=== PATIENT | male | born 1985 | race Caucasian/White ===

== ENCOUNTER 2018-03-16 00:58 | Observation (INO) | payer BC, OTHER ==
[~2018-03-16] VITALS: Ht 185.4 cm; Wt 112.0 kg
[~2018-03-16 00:58] MED LIST: ADDERALL 20 MG20 MG PO
[2018-03-16] MEDS ORDERED: ASPIRIN 81 MG CHEW TAB PO ONE (02:30)
[2018-03-16] MEDS ORDERED: CLONIDINE HCL 0.1 MG TAB PO ONE (02:30)
[2018-03-16 02:47] LABS: BASOPHILS # (AUTO) 0.1 (0.0-0.1); BASOPHILS % 0.7 % (0.0-1.0); EOSINOPHILS # (AUTO) 0.5 (0.0-0.4); EOSINOPHILS % 5.1 % (0.0-6.0); HEMATOCRIT 46.6 % (38.2-49.6); HEMOGLOBIN 16.4 g/dL (14.0-18.0); LYMPHOCYTES # (AUTO) 2.6 (1.0-3.2); LYMPHOCYTES % 26.4 % (18.0-39.1); MEAN CORPUSCULAR HEMOGLOBIN 32.2 pg (28-32); MEAN CORPUSCULAR HGB CONC 35.2 g/dL (31-35); MEAN CORPUSCULAR VOLUME 91.4 fL (81-99); MONOCYTES # (AUTO) 0.8 (0.2-0.8); MONOCYTES % 8.5 % (4.4-11.3); NEUTROPHILS # (AUTO) 5.7 (2.1-6.9); PLATELET COUNT 346 x10e3/uL (140-360); RED CELL DISTRIBUTION WIDTH 12.4 % (11.7-14.4)
[2018-03-16 02:59] LABS: CLARITY,URINE HAZY (CLEAR); COLOR,URINE YELLOW (YELLOW); LEUKOCYTE ESTERASE ,URINE 1+ (NEGATIVE); NITRITE,URINE NEGATIVE (NEGATIVE); PROTEIN,URINE DIPSTICK NEGATIVE (NEGATIVE)
[2018-03-16 03:00] LABS: BILIRUBIN,URINE NEGATIVE (NEGATIVE); INR 1.04; KETONES,URINE NEGATIVE (NEGATIVE); PROTHROMBIN TIME 12.8 seconds (11.9-14.5); URINE UROBILINOGEN 0.2 mg/dL (0.2 - 1)
[2018-03-16 03:01] LABS: AMPHETAMINES SCREEN,URINE POSITIVE (NEGATIVE); PARTIAL THROMBOPLASTIN TIME 33.4 seconds (23.8-35.5); PHENCYCLIDINE SCREEN,URINE NEGATIVE (NEGATIVE)
[2018-03-16 03:02] LABS: BENZODIAZEPINES SCREEN,URINE NEGATIVE (NEGATIVE)
[2018-03-16 03:10] LABS: ALANINE AMINOTRANSFERASE 41 IU/L (0-55); ALBUMIN 4.1 g/dL (3.5-5.0); ALBUMIN/GLOBULIN RATIO 1.2 (0.8-2.0); ALKALINE PHOSPHATASE 72 IU/L (40-150); ANION GAP 14.6 mmol/L (8-16); BLOOD UREA NITROGEN 10 mg/dL (7-26); BUN/CREATININE RATIO 10 (6-25); CALCIUM 9.9 mg/dL (8.4-10.2); CARBON DIOXIDE 26 mmol/L (22-29); CHLORIDE 101 mmol/L (98-107); CREATINE KINASE 326 IU/L (30-200); CREATININE, SERUM 0.99 mg/dL (0.72-1.25); EST GLOMERULAR FILTRATION RATE > 60 ML/MIN (60-); GLUCOSE 103 mg/dL (74-118); MAGNESIUM 1.8 MG/DL (1.3-2.1); POTASSIUM 3.6 mmol/L (3.5-5.1); SODIUM 138 mmol/L (136-145)
[2018-03-16 03:13] LABS: BACTERIA,URINE FEW /HPF; EPITHELIAL CELLS,URINE FEW /LPF; WBC,URINE (MAN) >50 /HPF (0-5)
--- NOTE | 2018-03-16 03:33 | Diagnostic Imaging Report ---
CHEST 2 VIEWS, Technique: CHEST 2 VIEWS Comparison: 04/06/2015 Clinical history: Chest pain DISCUSSION: Normal appearance of the heart, mediastinum, lungs and pleural spaces. IMPRESSION: No acute abnormality Signed by: Dr Suzie Dumont MD on 03/16/2018 3:30 AM
[2018-03-16] MEDS ORDERED: CEFTRIAXONE SOD 1 GM VIAL IV SCH (04:15)
[2018-03-16] MEDS ORDERED: AZITHROMYCIN 250 MG TAB PO ONE (04:15)
[2018-03-16] MEDS ORDERED: FAMOTIDINE 20 MG/2 ML VIAL IV SCH (04:30)
[2018-03-16] MEDS ORDERED: ONDANSETRON HCL INJ 2 MG/ML VIAL IV PRN (04:30)
[2018-03-16 05:45] VITALS: BP 139/81
[2018-03-16 06:26] VITALS: BP 139/81
[2018-03-16 07:32] VITALS: BP 124/68
[2018-03-16] MEDS ORDERED: KETOROLAC TROMETHAMINE 30 MG/ML VIAL IV PRN (08:45)
[2018-03-16] MEDS ORDERED: ASPIRIN 81 MG ENTERIC COATED PO SCH (09:00)
[2018-03-16] MEDS ORDERED: NICOTINE 14 MG/EA PATCH TOP SCH (09:30)
[2018-03-16 10:29] LABS: CREATINE KINASE 258 IU/L (30-200)
--- NOTE | 2018-03-16 10:34 | History and Physical ---
PCP: Mario Rabago MD GLASS TECHNICIAN: Edi Leon MD CHIEF COMPLAINT: Epigastric pain and chest pain associated with radiation of pain to the left upper extremity and to the jaw area. HISTORY OF PRESENT ILLNESS: The patient is a pleasant, 32-year-old male with ADD. The patient is on Adderall. Basically he was doing fine, but approximately 2 months ago he had the same similar episode where he had some upper abdominal pain and subsequent left-sided chest pain, like squeezing pain radiating to his left jaw and to the left upper extremity. While he was trying to sleep, he developed a jerking movement. The pain is intensified. Blood pressure went up. The patient in the emergency room, his blood pressure went up to the 163 to 111. Previously, when he has taken blood pressure medication, he felt better. Patient's blood pressure now is 124/68. His pulse rate is 101. Otherwise, the patient is stable. He is asymptomatic now. He did have one episode earlier where he had severe chest pain where he received ketorolac, and it improved his symptoms. PAST MEDICAL HISTORY: ADD and elevation of blood pressure at times. HOME MEDICATIONS: Adderall 20 mg t.i.d. ALLERGIES: NO KNOWN ALLERGIES. PAST SURGICAL HISTORY: Noncontributory. 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 He has protective gear and no recent chemical exposure. He does smoke. He is a social drinker. PHYSICAL EXAMINATION VITAL SIGNS: Temperature is 98. Blood pressure 124/68. Pulse rate 86. Respirations 20. GENERAL EXAM: The patient is not in acute distress. He is awake. HEENT: Normocephalic. Sclerae are anicteric. NECK: Supple grossly. PULMONARY: Clear. CARDIOVASCULAR: Regular rate and rhythm. ABDOMEN: Soft. Generalized discomfort, but no guarding or rebound tenderness. EXTREMITIES: No gross cyanosis or edema. NEUROLOGIC: There is no gross focal deficit. LABORATORY: Sodium is 138, potassium 3.6, chloride 101, bicarb 26, BUN 10, creatinine 0.9. Glucose is 103. Creatinine kinase is 326. AST is 35. ALT is 41. Cardiac enzymes are negative. Toxicology positive for amphetamine for which the patient has prescribed medication. Positive for opiate. Urine has 1+ leukocyte esterase, greater than 50 WBCs. WBC is 9.6, hemoglobin 16.4, hematocrit 46.6 and platelets is 346. Chest x-ray is unremarkable. IMPRESSION 1. Abdominal and chest pain, etiology unclear, recurrent. This is the 2nd time. 2. Urinary tract infection. 3. Pressure chest pain. 4. Episodic increase in blood pressure. PLAN 1. CT of the chest, abdomen and pelvis with contrast. 2. Echocardiogram. 3. Consultation with Dr. Edi Leon. 4. Continue with supportive medication. 5. Pain control. 6. Will monitor the patient closely. 7. The patient will resume his home medications. EVAN ALLEN MD Job#: [id number]
[2018-03-16 11:39] LABS: CHOL/HDL RATIO 4.1 (3.9-4.7)
[2018-03-16 11:46] VITALS: BP 130/76
[2018-03-16 12:00] LABS: THYROID STIMULATING HORMONE 0.964 uIU/mL (0.350-4.940)
--- NOTE | 2018-03-16 13:16 | Consultation ---
DATE OF CONSULTATION: March 16, 2018 CARDIOLOGY CONSULTATION REASON FOR CONSULTATION: Chest pain. HPI: This is a 32-year-old male with history of ADHD on Adderall therapy and history of "occasional hypertension." The patient presented to [facility] ER with complaints of initial abdominal pain and some left-sided chest tightness. Therefore, cardiology was consulted. The patient was seen in the room in no acute distress. He reports he has had several episodes of left-sided chest pain and tightness going down to his left shoulder and arm. However, last night, while he was lying in bed, he had symptoms again. Therefore, he came to the ER for evaluation. He reports during these chest pain episodes some shortness of breath, palpitations and some slight nausea. He states the discomforts lasted for hours, and they relieved on their own. Labs drawn are showing negative troponin times 2 and negative BNP. EKG showing no ST changes suggestive of acute event. Of note, he had a UA which was suggestive of urinary tract infection, and he has been given antibiotic therapy. PAST MEDICAL HISTORY: ADHD, also "occasional hypertension." HOME MEDICATIONS: Adderall 20 mg t.i.d. SURGICAL HISTORY: Left meniscus repair. 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 He is a smoker for greater than 10 years of 1/2 pack per day. He reports alcohol use on occasion. FAMILY HISTORY: Mother is alive, age 50, with a history of hypertension. Father at age 60 apparently has a history of alcoholism. Maternal grandmother has history of bypass. Paternal grandfather has a history of CAD and CABG. ALLERGIES: NO KNOWN ALLERGIES. REVIEW OF SYSTEMS GENERAL: Denies any fever, chills, weight gain, night sweats. SKIN: No rashes or sores. HEENT: Some nausea and vomiting times 1. Denies any visual changes. No blurred vision or double vision, any earaches or discharge, any epistaxis, rhinorrhea, stuffiness, any sore throat or hoarseness. CARDIAC: Positive chest pain as above. Occasional palpitations. Positive dyspnea on exertion. Denies any orthopnea, PND, or lower extremity edema. RESPIRATORY: Positive for shortness of breath on exertion. Denies any wheezing or hemoptysis. GI: Good appetite. Occasional nausea and vomiting. Denies any hematemesis. URINARY: Denies any polyuria, dysuria, hematuria. VASCULAR: Denies any lower extremity edema or claudication. MUSCULOSKELETAL: Generalized joint pains and bilateral knee pains. NEURO: Right toe numbness. No blackouts, fainting, seizures. HEMATOLOGY: No anemia. No easy bruising. ENDOCRINE: No heat or cold intolerance. No polyuria, polydipsia, or polyphagia. PHYSICAL EXAMINATION VITAL SIGNS: Current temperature 97, pulse 81, respiratory rate 17, blood pressure 130/76, pulse ox 98%. GENERAL: In no acute distress, reliable informant. Well developed. SKIN: No rashes or bruises. Positive tattoos through left shoulder and left arm. HEENT: Normocephalic. Pupils are equal and reactive. Extraocular motor intact. Trachea is midline. No thyromegaly. No JVD. No carotid bruits noted. HEART: Regular rate and rhythm. No murmurs. No clicks. LUNGS: Bilateral breath sounds are clear to auscultation. ABDOMEN: Soft, nontender and nondistended. No organomegaly noted. MUSCULOSKELETAL: Good muscle strength throughout. No lower extremity swelling. VASCULAR: There are +2 bilateral radial pulses and +2 DP and PT pulses bilaterally. NEUROLOGIC: Cranial nerves II through XII seem intact. LABS: Sodium 138, potassium 3.6, BUN 10, creatinine 0.9. Troponin less than 0.001 times 2. BNP less than 10. HDL 47, LDL 111. Hemoglobin 16, hematocrit 46, platelets 346. D-dimer less than 100. UA is showing leukocyte esterase +1 and urine WBCs greater than 50. Chest x-ray: No acute abnormalities. EKG: Sinus tachycardia at 100. No ST changes suggestive of an acute event. ASSESSMENT 1. Urinary tract infection. 2. Chest pain. 3. Hypertension. 4. Palpitations. 5. Anxiety. PLAN 1. The patient presents with mixed features. Thus far, negative enzymes times 2. EKG without any acute changes suggestive of an acute event. The patient is very concerned with these symptoms. He reports this is the 3rd time he has had these chest pain symptoms and wants further evaluation. Echocardiogram has been ordered and is currently being done. Will be reviewed by cardiology attending. 2. Will go ahead and do a stress test as per the patient's request to evaluate the symptoms. 3. Will continue tele monitoring. The patient is reporting palpitations intermittently. However, tele was reviewed, and no arrhythmia was noted. 4. Antibiotic therapy as per primary service for his UTI. 5. The blood pressure is reasonable right now. We will just continue to monitor for now. 6. We will go ahead and check a TSH level. Thank you very much for this consult. We will adjust cardiac therapy as course dictates. Dictated by: Elvis Harley NP Job#: [id number]
--- NOTE | 2018-03-16 13:26 | Cardiology Report ---
DATE OF STUDY: March 16, 2018 CARDIAC STRESS TEST TECHNICAL DETAILS: The protocol is Dc with target heart rate at 161 per minute (85%). RESULTS 1. Patient exercised for a total of 9 minutes 1 second. 2. Heart rate increased from 70 per minute to 165 per minute. 3. Blood pressure increased from 110/70 to 160/80. 4. No chest pain. 5. No EKG changes. IMPRESSION: Negative cardiac stress test. Limitations of a negative cardiac stress test are explained and discussed. Job#: [id number]
--- NOTE | 2018-03-16 13:39 | Diagnostic Imaging Report ---
PROCEDURE: CT scan of the chest WITH intravenous contrast, using standard protocol. TECHNIQUE: The chest was scanned utilizing a multidetector helical scanner from the lung apex through the level of the adrenal glands after the IV administration of 100 cc of Isovue 370. Coronal and sagittal multiplanar reformations were obtained. DLP: 1078.55 mGy-cm COMPARISON: Same day chest radiograph. INDICATIONS: CHEST, ABDOMEN PAIN FINDINGS: Lines/tubes: None. Lungs and Airways: The lungs and airways are normal. There is mild dependent atelectasis. No consolidations are demonstrated. Pleura: The pleural spaces are clear. Heart and mediastinum: The thyroid gland is normal. No significant mediastinal, hilar or axillary lymphadenopathy is seen. The heart and pericardium are within normal limits. Main pulmonary artery measures 2.5 cm in diameter, within normal limits. Ascending aorta measures 2.5 cm in diameter, within normal limits. Soft tissues: Normal. Abdomen: Please see same day CT abdomen and pelvis for abdominal findings. Bones: The visualized bony thorax is within normal limits. IMPRESSION: Normal chest CT. Dictated by: Supa Rodriguez M.D. on 03/16/2018 at 13:41 Electronically approved by: Supa Rodriguez M.D. on 03/16/2018 at 13:41
--- NOTE | 2018-03-16 13:45 | Diagnostic Imaging Report ---
PROCEDURE: CT ABDOMEN AND PELVIS WITH CONTRAST TECHNIQUE: The abdomen and pelvis were scanned utilizing a multidetector helical scanner from the diaphragm to the lesser trochanter after the IV administration of 100 cc of Isovue 370 and the oral administration of 900 cc of water. Coronal and sagittal multiplanar reformations were obtained. DLP: 1078.55 mGy-cm COMPARISON: None. INDICATIONS: CHEST, ABDOMEN PAIN FINDINGS: THORAX: Please see same day chest CT for chest findings. HEPATOBILIARY: No focal hepatic lesions. No biliary ductal dilatation. SPLEEN: No splenomegaly. PANCREAS: No focal masses or ductal dilatation. ADRENALS: No adrenal nodules. KIDNEYS/URETERS: No hydronephrosis, stones, or solid mass lesions. PELVIC ORGANS/BLADDER: Unremarkable. PERITONEUM / RETROPERITONEUM: No free air or fluid. LYMPH NODES: No lymphadenopathy. VESSELS: Unremarkable. GI TRACT: No distention or wall thickening. BONES AND SOFT TISSUES: Unremarkable. IMPRESSION: No acute abnormalities in the abdomen and pelvis. Dictated by: Supa Rodriguez M.D. on 03/16/2018 at 13:48 Electronically approved by: Supa Rodriguez M.D. on 03/16/2018 at 13:48
[2018-03-16] MEDS ORDERED: SODIUM CHLORIDE 0.9% 50ML 50 ML ONE (14:45)
[2018-03-16] MEDS ORDERED: IOPAMIDOL 370 MG/ML 200 ML INFUS..BTL INJ ONE (14:46)
[2018-03-16] MEDS ORDERED: CEFTRIAXONE SOD 1 GM VIAL IM ONE (15:00)
[2018-03-16] MEDS ORDERED: LIDOCAINE HCL 1% 2 ML AMP INJ ONE (15:00)
[2018-03-16] MEDS ORDERED: NON-FORMULARY MEDICATION (Amphet Asp/Amphet/D-Amphet (Adderall 20 Mg Tablet) 20 MG) PO SCH (15:00)
[2018-03-16 15:25] VITALS: BP 156/90
[2018-03-16 15:44] VITALS: BP 162/82
== END 2018-03-16 16:03 | disposition home or self-care (01) ==
LOC: ER 00:58 → ERHOLD 04:26 → IMCU 05:30
PROVIDERS: ADMIT Internal Medicine; ATTEND Internal Medicine
DX: R07.9 Chest pain, unspecified (principal); N30.00 Acute cystitis without hematuria; I10 Essential (primary) hypertension; F90.9 Attention-deficit hyperactivity disorder, unspecified type; R10.13 Epigastric pain; R68.84 Jaw pain; R00.2 Palpitations; F41.9 Anxiety disorder, unspecified; F17.210 Nicotine dependence, cigarettes, uncomplicated
CPT/HCPCS: 36415; 71046; 71260; 74177; 80053; 80061; 80307; 81001; 82550; 82553; 83735; 83880; 84443; 84484; 85025; 85379; 85610; 85730; 93005; 93017; 93306; 99284; G0378; J0696; J1885; J2001; Q9967

== ENCOUNTER 2019-05-23 05:09 | Inpatient (IN) | payer SELFPAY ==
[2019-05-23] VITALS (18 sets, daily range): BP systolic 85–198; BP diastolic 59–108
[~2019-05-23] VITALS: Ht 185.4 cm; Wt 95.3 kg
--- OUTSIDE RECORDS SUMMARY | 2019-05-23 05:11 | XMS REPORT | Clinical Summary ---
Author Author [facility] Organization [facility] Address Unknown Phone Unavailable Care Team Providers Care Hand Rounder Name Role Phone Ania Sahu MD PCP Allergies No Known Allergies Medications End Date Status Medication Sig Dispensed Refills Start Date Active AMPHETAMINE-DEXTROAMPHETA 20 mg 3 0 MINE 20 MG tablet (three) times 6 a day. Rarely takes TID Active dexlansoprazole Take 60 mg by 0 (DEXILANT) 60 mg capsule mouth daily. Active ondansetron (ZOFRAN) 4 MG Take 1 tablet 20 tablet 0 tablet (4 mg total) 6 by mouth every 8 (eight) hours as needed for nausea or vomiting. Active Problems No known active problems Family History Medical History Relation Name Comments Alcohol abuse Father Drug abuse Father Other Father No Known Problems Mother Relation Name Status Comments Father Alive Mother Alive Social History Date Tobacco Use Types Packs/Day Years Used Current Every Day Smoker Cigarettes 0.5 10 Drinks/Week oz/Week Comments Alcohol Use 3 Cans of beer currently 3 drinks a month - but 6 months prior heavier etoh use Yes Sex Assigned at Date Recorded Not on file Industry Job Start Date Occupation Not on file Not on file Not on file Travel End Travel History Travel Start No recent travel history available. Last Filed Vital Signs Not on file Plan of Treatment Health Maintenance Due Date Last Done Comments INFLUENZA VACCINE 04/27/2019 Results Not on fileafter 05/22/2018 Insurance Type Payer Benefit Subscriber ID Effective Phone Address Plan / Dates Group HMO/PPO [facility] xxxxxxxxx 2016-P THCARE resent CHOICE/CHO ICE + y (Home) [place] [id number]
[2019-05-23] MEDS ORDERED: ONDANSETRON HCL INJ 2MG/ML 2ML 2 MG/ML VIAL IV STA (05:35)
--- NOTE | 2019-05-23 05:40 | NUR ---
PT AGITATED - UNABLE TO GET EKG D/T PT AGITATION; ER MD NOTIFIED - ATIVAN 1MG IVP ORDERED
[2019-05-23] MEDS ORDERED: SODIUM CHLORIDE 0.9% 1000ML 1,000 ML IV ONE ×2 (05:45→07:51)
[2019-05-23] MEDS ORDERED: LORAZEPAM INJ 2 MG/ML VIAL IV ONE ×3 (05:45→07:15)
[2019-05-23 05:57] LABS: BASOPHILS # (AUTO) 0.1 (0.0-0.1); BASOPHILS % 0.7 % (0.0-1.0); EOSINOPHILS # (AUTO) 0.3 (0.0-0.4); EOSINOPHILS % 2.4 % (0.0-6.0); HEMATOCRIT 46.6 % (38.2-49.6); HEMOGLOBIN 16.1 g/dL (14.0-18.0); LYMPHOCYTES # (AUTO) 1.6 (1.0-3.2); MEAN CORPUSCULAR HEMOGLOBIN 31.5 pg (28-32); MEAN CORPUSCULAR HGB CONC 34.5 g/dL (31-35); MEAN CORPUSCULAR VOLUME 91.2 fL (81-99); MONOCYTES # (AUTO) 0.8 (0.2-0.8); NEUTROPHILS % 74.4 % (38.7-80.0); PLATELET COUNT 374 x10e3/uL (140-360); RED BLOOD COUNT 5.11 x10e6/uL (4.3-5.7); RED CELL DISTRIBUTION WIDTH 12.5 % (11.7-14.4)
--- NOTE | 2019-05-23 06:00 | NUR ---
PT CONTINUOUSLY PULLING MONITOR CORDS OFF AND IV TUBING; PT STATES IT IS "BOTHERING ME"
[2019-05-23 06:15] LABS: ALANINE AMINOTRANSFERASE 36 IU/L (0-55); ALBUMIN 4.2 g/dL (3.5-5.0); ALBUMIN/GLOBULIN RATIO 1.3 (0.8-2.0); ALKALINE PHOSPHATASE 76 IU/L (40-150); ANION GAP 13.9 mmol/L (8-16); BLOOD UREA NITROGEN 10 mg/dL (7-26); BUN/CREATININE RATIO 10 (6-25); CALCIUM 10.2 mg/dL (8.4-10.2); CARBON DIOXIDE 25 mmol/L (22-29); CHLORIDE 103 mmol/L (98-107); CREATINE KINASE 512 IU/L (30-200); CREATININE, SERUM 0.97 mg/dL (0.72-1.25); EST GLOMERULAR FILTRATION RATE > 60 ML/MIN (60-); GLUCOSE 111 mg/dL (74-118); POTASSIUM 3.9 mmol/L (3.5-5.1); SODIUM 138 mmol/L (136-145)
--- NOTE | 2019-05-23 06:23 | Diagnostic Imaging Report ---
Examination: Single AP view of the chest. COMPARISON: 03/16/2018 INDICATION: Cough DISCUSSION: Lungs are well-inflated and without focal consolidation, pleural effusion, or pneumothorax. Cardiomediastinal contour and pulmonary vasculature are within normal limits. No acute osseous abnormality. IMPRESSION: 1. No acute cardiopulmonary abnormalities. Signed by: Dr. Elvis Ruggiero M.D. on 05/23/2019 6:20 AM
[2019-05-23] MEDS ORDERED: CLONIDINE HCL 0.1 MG TAB PO ONE (06:30)
[2019-05-23 06:42] LABS: BILIRUBIN,URINE NEGATIVE (NEGATIVE); CLARITY,URINE CLEAR (CLEAR); COLOR,URINE YELLOW (YELLOW); KETONES,URINE NEGATIVE (NEGATIVE); LEUKOCYTE ESTERASE ,URINE TRACE (NEGATIVE); NITRITE,URINE NEGATIVE (NEGATIVE); PROTEIN,URINE DIPSTICK NEGATIVE (NEGATIVE); URINE UROBILINOGEN 0.2 mg/dL (0.2 - 1)
[2019-05-23] MEDS ORDERED: ZIPRASIDONE 20 MG VIAL IM STA (06:43)
--- NOTE | 2019-05-23 06:45 | NUR ---
PT REPORT TAKEN FROM SOL RN; PER SOL PT AGITATED AND UNCOOPERATIVE; PT WOULD NOT SIT STILL FOR EKG OR BP; UPON INTRODUCTION PT IS PACING AROUND ROOM AND ATTEMPTED TO LEAVE SEVERAL TIMES; RICHIE MARTE SHANNEL, ROMAN HORTON ALL HAD TO TALK PT INTO STAYING EACH TIME AND ENCOURAGE PT TO GET INTO BED SO TO AVOID FALL
--- NOTE | 2019-05-23 06:45 | NUR ---
PT STILL AGITATED AFTER 2 MG TOTAL OF ATIVAN IVP; 20MG GEODON ORDERED AND IN CHART PER ER MD
[2019-05-23] MEDS ORDERED: ZIPRASIDONE 20 MG VIAL IM ONE (06:47)
[2019-05-23 06:48] LABS: AMPHETAMINES SCREEN,URINE POSITIVE (NEGATIVE); BENZODIAZEPINES SCREEN,URINE POSITIVE (NEGATIVE)
[2019-05-23 06:49] LABS: PHENCYCLIDINE SCREEN,URINE NEGATIVE (NEGATIVE)
--- NOTE | 2019-05-23 06:52 | NUR ---
REPORT TO DERIC AMOS
[2019-05-23 06:59] LABS: BACTERIA,URINE FEW /HPF; EPITHELIAL CELLS,URINE FEW /LPF; RBC,URINE 0-5 /HPF (0-5); WBC,URINE (MAN) 0-5 /HPF (0-5)
--- NOTE | 2019-05-23 07:15 | NUR ---
PT PROGRESSIVELY BECOMING MORE AGITATED AND UNCOOPERATIVE; AT BEDSIDE TRYING CALM PT DOWN; PT TRIES TO JUMP OVER BED RAILINGS; RICHIE AND BOTH TALK TO PT ABOUT STAYING IN BED AND AVOIDING INJURING SELF
[2019-05-23] MEDS ORDERED: DIPHENHYDRAMINE HCL INJ 50 MG/ML VIAL ONE (07:33)
--- NOTE | 2019-05-23 07:40 | NUR ---
PATIENT CONFUSED, DISORIENTED, AGGRESSIVE, COMBATIVE, UNCOOPERATIVE, CLIMBING OVER BED RAILS. PATIENT RE-ORITENTED, HELPED BACK INTO BED BY DANDRE LEOS, EDUCATED PATIENT AND FAMILY ON SAFETY MEASURES. RN CONTINUALLY AT BEDSIDE FOR PATIENT SAFETY. DR DEXTER AT BEDSIDE FOR RE-EVAL AND DISCUSSING CURRENT PLAN OF CARE WITH PATIENT AND FAMILY, FAMILY VERBALIZED UNDERSTANDING.
[2019-05-23] MEDS ORDERED: MIDAZOLAM HCL 2 MG/2 ML VIAL IV ONE (07:44)
--- NOTE | 2019-05-23 07:44 | NUR ---
DR DEXTER AT BEDSIDE DISCUSSING THE CURRENT PLAN OF CARE WITH PATIENT AND FAMILY, PATIENT TO BE INTUBATED AND SEDATED FOR PATIENT SAFETY. PATIENT AGGITATED, WILL NOT SIT IN BED, CLIMBING OVER BED RAILS, AGGRESSIVE, UNCOOPERATIVE AFTER RECEIVING GEODON AND VERSED. MULTIPLE RN'S AT BEDSIDE WITH PATIENT. NOTIFIED RESPIRATORY. RESPIRATORY AT BEDSIDE FOR STAT INTUBATION.
--- NOTE | 2019-05-23 07:44 | NUR ---
VERSED 2MG IV
[2019-05-23] MEDS ORDERED: PROPOFOL IV EMULSION 10MG/ML 100 ML ONE ×2 (07:46→08:02)
--- NOTE | 2019-05-23 07:47 | NUR ---
0747 ETOMIDATE 20MG 0747 SUCCINYCHOLINE 120MG [address] DEXTER 8.0 23CM AT THE TEETH
[2019-05-23] MEDS: PROPOFOL IV EMULSION 10MG/ML 100 ML IV PRN ×4 (07:50→14:30)
--- NOTE | 2019-05-23 07:50 | NUR ---
VERBAL ORDER RECEIVED FOR RESTRAINTS. PATIENT MOVING ARMS, BITTING ET TUBE AND ATTEMPTING TO PULL AT ET TUBE. DR DEXTER AT BEDSIDE FOR RE-EVAL.
[2019-05-23] MEDS ORDERED: SODIUM CHLORIDE 0.9% 1000ML 1,000 ML ONE (07:54)
[2019-05-23] MEDS ORDERED: MIDAZOLAM HCL 2 MG/2 ML VIAL ONE ×3 (08:10→18:17)
--- OUTSIDE RECORDS SUMMARY | 2019-05-23 08:23 | XMS REPORT | Clinical Summary ---
Author Author [facility] Organization [facility] Address Unknown Phone Unavailable Care Team Providers Care Supervisor Underwriting Clerks Name Role Phone Ania Sahu MD PCP [...] Phone Address Plan / Dates Group HMO/PPO [facility] xxxxxxxxx 2016-P THCARE resent CHOICE/CHO ICE + y (Home) [place] [id number]
[2019-05-23] MEDS ORDERED: percocet (08:52)
[2019-05-23] MEDS ORDERED: morphine (08:52)
[2019-05-23] MEDS ORDERED: MORPHINE SULFAT30 M2 PO (08:52)
[2019-05-23] MEDS ORDERED: [UNRECOGNIZED DRUG - REMARK] IM (08:53)
[2019-05-23] MEDS: FENTANYL CITRATE INJ 2,000 MCG in SODIUM CHLORIDE 0.9% 250ML 210 ML IV PRN ×2 (08:55→09:59)
[2019-05-23] MEDS: SODIUM CHLORIDE 0.9% 1000ML 1,000 ML IV SCH ×3 (09:27→23:39)
[2019-05-23 09:46] LABS: ABG HCO3 26 mmol/L (23-28); ABG PCO2 51 mmHg (41-51); ABG PH 7.32 (7.31-7.41); ABG PO2 172 mmHg (80-105)
--- NOTE | 2019-05-23 10:41 | Diagnostic Imaging Report ---
EXAMINATION: Head CT HISTORY: Altered mental status. COMPARISON: None. TECHNIQUE: Multidetector axial images were obtained without contrast from the foramen magnum to the vertex . The images were reconstructed using brain and bone algorithms. Thin section brain images were reformatted into coronal and sagittal planes. Image quality: Motion/streaking artifact limits the evaluation of the skull base and posterior cranial fossa. Dose modulation, iterative reconstruction, and/or weight based adjustment of the mA/kV was utilized to reduce the radiation dose to as low as reasonably achievable. FINDINGS: Parenchyma: 1. No abnormal densities. 2. No mass or hemorrhage. No CT evidence of acute territorial vascular insult. Extra-axial spaces:No abnormal density. No extra-axial fluid collections Brain volume: Normal for age. Ventricles: No hydrocephalus or displacement. Arteries: No density suggestive of thrombus. Dural sinuses: No abnormal density. Extra-axial spaces: No abnormal density. Foramen magnum: No mass, Chiari malformation, or basilar invagination. Sella: No obvious mass. Paranasal/mastoid sinuses: Imaged portions unremarkable. Skull/Scalp: No lytic or blastic lesions. No fractures. IMPRESSION: Normal head CT. Signed by: Dr. Fannie Velázquez M.D. on 05/23/2019 10:37 AM
--- NOTE | 2019-05-23 10:46 | Diagnostic Imaging Report ---
Examination: Single AP view of the chest. COMPARISON: None. INDICATION: Intubation DISCUSSION: Lines/tubes: Endotracheal tube 5 cm above the rene in satisfactory position. Lungs: The lungs are well inflated and clear. No pneumonia or pulmonary edema. Pleura: No pleural effusion or pneumothorax. Heart and mediastinum: The heart and the mediastinum are unremarkable. Bones and soft tissues: No acute bony abnormalities. IMPRESSION: 1. No acute cardiopulmonary abnormalities. Signed by: Dr. Shashank Roth M.D. on 05/23/2019 10:42 AM
[2019-05-23] MEDS ORDERED: THIAMINE HCL INJ 100 MG/ML 2ML VIAL IV ONE (12:20)
--- NOTE | 2019-05-23 14:35 | NUR ---
spoke to dr. fang about new consult
[2019-05-23 14:58] LABS: CREATINE KINASE MB 8.5 ng/mL (0-5.0)
--- NOTE | 2019-05-23 16:10 | Consultation ---
DATE OF CONSULTATION: Pulmonary Critical Care Consultation HISTORY OF PRESENT ILLNESS: The patient is a 33-year-old man. He has a history of ADHD. He was taking Adderall through Dr. Ndiaye. Apparently, he lost his medical insurance and had difficulty affording the prescription. He was subsequently buying it from a friend. He also has some chronic knee pain and was using Percocet through [facility]. He ran out of Percocet 4 or 5 days ago and has been more irritable and agitated. According to the family, he became agitated and delusional this morning. He had to be taken to the ER. He received Geodon and Ativan. The ER staff subsequently intubated him and he is now in the ICU on a mechanical ventilator. PAST SURGICAL HISTORY: Status post knee surgery. PAST MEDICAL HISTORY: 1. Chronic knee pain. 2. ADHD. 3. Hypertension. SOCIAL HISTORY: The patient is not a smoker. The family does not know of any illicit drug use. He apparently was taking Adderall today that he was purchasing through a friend. FAMILY HISTORY: Family history is significant for hypertension. ALLERGIES: THERE ARE NO KNOWN DRUG ALLERGIES. REVIEW OF SYSTEMS: The patient is afebrile. He has no headache. He is not having any neck pain. He is not having any chest pain. He does not have any nausea or vomiting. He has no leg edema. He did have confusion and agitation, but no focal neurological abnormalities. PHYSICAL EXAMINATION: VITAL SIGNS: The blood pressure is 158/64 and the pulse is 110-120. He is on assist-control mode of ventilation. HEENT: Shows no facial swelling or erythema. CARDIAC: Reveals regular rate and rhythm with normal S1 and S2. There are no murmurs or rubs heard. LUNGS: Auscultation of lungs reveals clear breath sounds bilaterally. There is no wheezing. ABDOMEN: Soft and nontender. There is no rebound or guarding. EXTREMITIES: Shows no leg edema or calf tenderness. There is no cyanosis or clubbing. SKIN: Shows no rashes. NEUROLOGIC: Shows the patient to be sedated with no focal abnormalities. LABORATORY DATA: BUN to creatinine ratio is normal. The other electrolytes within normal limits. CK is 512. Blood counts are within normal limits. RADIOGRAPHIC DATA: CT scan of the head shows no abnormalities. Chest x-ray shows no acute disease. IMPRESSION: 1. Acute toxic metabolic encephalopathy. 2. Acute delirium. 3. Attention-deficit/hyperactivity disorder. 4. Hypertension. PLAN: 1. Continue current sedatives. Reassess the patient later today and place the patient on a spontaneous breathing trial. 2. Continue IV fluids. 3. Low-dose fentanyl to prevent any narcotic withdrawal. MD WESLEY Echavarria/MODL /[id number]
[2019-05-23] MEDS ORDERED: FENTANYL 50 MCG/HR PATCH TOP SCH (16:15)
[2019-05-23] MEDS ORDERED: ZIPRASIDONE 20 MG VIAL IM PRN (16:45)
[2019-05-23] MEDS ORDERED: LORAZEPAM INJ 2 MG/ML VIAL IV PRN (16:45)
--- NOTE | 2019-05-23 16:45 | NUR ---
DR CARDENAS ORDER EXTUBATED PT ,PLACED PT ON NC 3L,O2 SATS 100%,NO RES DISTRESS AT THIS TIME.
--- NOTE | 2019-05-23 16:50 | NUR ---
sedation turned off, pt extubated by dr herbert. family at bedside
[2019-05-23] MEDS ORDERED: ETOMIDATE 40 MG/ 20ML VIAL IV ONE (18:17)
[2019-05-23] MEDS ORDERED: SUCCINYLCHOLINE CHLORIDE 20 MG/ML 10ML VIAL ONE (18:17)
--- NOTE | 2019-05-23 19:00 | NUR ---
Bedside report received from Sunshine Cameron RN. Care plan reviewed, pts family/ is at the bedside.
[2019-05-23 21:41] LABS: CREATINE KINASE MB 7.4 ng/mL (0-5.0)
[2019-05-24] VITALS (15 sets, daily range): BP systolic 97–144; BP diastolic 37–88
[2019-05-24 05:14] LABS: BASOPHILS # (AUTO) 0.1 (0.0-0.1); BASOPHILS % 0.7 % (0.0-1.0); EOSINOPHILS # (AUTO) 0.3 (0.0-0.4); EOSINOPHILS % 3.8 % (0.0-6.0); HEMATOCRIT 43.8 % (38.2-49.6); HEMOGLOBIN 14.5 g/dL (14.0-18.0); LYMPHOCYTES # (AUTO) 1.5 (1.0-3.2); LYMPHOCYTES % 18.9 % (18.0-39.1); MEAN CORPUSCULAR HEMOGLOBIN 31.1 pg (28-32); MEAN CORPUSCULAR HGB CONC 33.1 g/dL (31-35); MONOCYTES % 12.4 % (4.4-11.3); NEUTROPHILS # (AUTO) 4.9 (2.1-6.9); NEUTROPHILS % 63.9 % (38.7-80.0); PLATELET COUNT 279 x10e3/uL (140-360); RED BLOOD COUNT 4.66 x10e6/uL (4.3-5.7); RED CELL DISTRIBUTION WIDTH 12.7 % (11.7-14.4)
[2019-05-24 05:53] LABS: ALBUMIN 3.2 g/dL (3.5-5.0); BILIRUBIN,DIRECT 2.1 mg/dL (0.0-0.5)
[2019-05-24 06:00] LABS: CREATINE KINASE MB 3.1 ng/mL (0-5.0)
[2019-05-24] MEDS: SODIUM CHLORIDE 0.9% 1000ML 1,000 ML IV SCH (06:39)
[2019-05-24 06:50] LABS: ALANINE AMINOTRANSFERASE 107 IU/L (0-55); ALBUMIN 3.2 g/dL (3.5-5.0); ALBUMIN/GLOBULIN RATIO 1.3 (0.8-2.0); ALKALINE PHOSPHATASE 91 IU/L (40-150); ANION GAP 11.8 mmol/L (8-16); BLOOD UREA NITROGEN 10 mg/dL (7-26); BUN/CREATININE RATIO 12 (6-25); CALCIUM 8.9 mg/dL (8.4-10.2); CARBON DIOXIDE 24 mmol/L (22-29); CHLORIDE 107 mmol/L (98-107); CREATININE, SERUM 0.83 mg/dL (0.72-1.25); EST GLOMERULAR FILTRATION RATE > 60 ML/MIN (60-); GLUCOSE 97 mg/dL (74-118); MAGNESIUM 1.9 MG/DL (1.3-2.1); POTASSIUM 3.8 mmol/L (3.5-5.1); SODIUM 139 mmol/L (136-145)
[2019-05-24] MEDS ORDERED: ZIPRASIDONE 20 MG VIAL IM PRN (08:15)
--- NOTE | 2019-05-24 08:29 | NUR ---
PATIENT AMBULATED TO TOILET WITHOUT ANY DIFFICULTY. NO SIGNS OF ANY SOB, DENIES DIZZINESS Addendum: 05/24/19 at 0837 by Lilia Ambrose RN Amended: Links added.
--- NOTE | 2019-05-24 09:03 | NUR ---
DISCONTINUED IVF PER MD ORDER. PATIENT TOLERATING PO WELL
--- NOTE | 2019-05-24 10:09 | Progress Note ---
DATE: SUBJECTIVE: The patient feels much better today. He is agitated. He is not complaining of anxiety. His blood tests did show an elevated bilirubin and transaminases. PHYSICAL EXAMINATION: VITAL SIGNS: The patient is afebrile. The blood pressure is 136/67 and the pulse is 99. Saturation is 99% on 3 L. HEENT: Shows no facial swelling or erythema. The oropharynx is normal. LYMPHATIC: Shows no submandibular, cervical, or supraclavicular adenopathy. CARDIAC: Reveals regular rate and rhythm with normal S1, S2. There are no murmurs or rubs. LUNGS: Auscultation of lungs reveals clear breath sounds bilaterally. There is no wheezing. ABDOMEN: Soft, nontender. There is no rebound or guarding. EXTREMITIES: Show no leg edema or calf tenderness. There is no cyanosis or clubbing. SKIN: Shows no rashes. NEUROLOGICAL: Shows no focal abnormalities. IMPRESSION: 1. Elevated liver function tests of unclear cause. 2. Acute delirium. 3. Toxic metabolic encephalopathy. PLAN: 1. Abdominal ultrasound. 2. Hepatitis serologies. 3. Repeat liver function tests tomorrow. 4. Pain Management consultation. Keon Mendoza MD [facility] /[id number]
--- NOTE | 2019-05-24 11:28 | Diagnostic Imaging Report ---
Abdominal ultrasound Clinical History: Abnormal LFTs Discussion: Sonographic evaluation of the the abdomen is performed. The liver has normal size and measures 14.1 cm in length. The liver echotexture is normal, without focal mass. There is no intra or extrahepatic biliary dilatation. The common bile duct measures 4 mm. The gallbladder has normal appearance, without wall thickening, stones, or pericholecystic fluid. The main portal vein diameter is normal, measuring 13 mm. The pancreatic head, body, and proximal tail demonstrate no abnormality. There is no ascites. The right and the left kidney measure 10.2 and 12.0 cm in length respectively and are normal in size. There is no renal mass, hydronephrosis, or shadowing renal calculus. The spleen measures 12.1 cm in length and is normal in echotexture. Segments of the inferior vena cava and aorta visualized demonstrate no abnormality. Impression: 1. Mild splenomegaly. Otherwise, unremarkable abdominal ultrasound. Signed by: Dr. Kenji Velazco MD on 05/24/2019 11:25 AM
[2019-05-24] MEDS ORDERED: HYDROCODONE/APAP 5MG-325MG TAB PO ONE (13:15)
--- NOTE | 2019-05-24 13:23 | NUR ---
duragesic patch from left shoulder removed and placed in sharps container. gave 1 time dose of norco. assess fro discharge in hr
--- NOTE | 2019-05-24 14:20 | NUR ---
Nutrition Screen Note RD Recommendation for Physician: -Continue diet as ordered Plan of Care: RD following, monitoring for tolerance and adequacy Nutrition reason for involvement: Nutrition Risk Trigger MST Primary Diagnose(s): substance abuse, delirium, agitated PMH: 1. Chronic knee pain. 2. ADHD. 3. Hypertension. Ht: 73in Wt: 210lb BMI: 27.7kg/m2 IBW: 184lb +/- 10% RD Assessment: (05/24) Chart reviewed. Labs and meds reviewed. 33yo M, who was admitted for agitation. Pt was extubated yesterday. Currently on regular diet. Tolerating diet well without any nausea or vomiting. Pt reported eating like usual [employer]. No recent weight loss noted. Pt denied any chewing or swallowing difficulty. Current diet is appropriate and adequate. Current Diet: regular diet Malnutrition Evaluation (05/24/2019) The patient does not meet criteria for a specified degree of malnutrition at this time. Will re-evaluate at follow-up as appropriate. Diet Education Needs Assessment: Diet education not indicated. Nutrition Care Level: low Signed: Amie Amin, MS, RD, LD
--- NOTE | 2019-05-24 14:20 | NUR ---
DISCONTINUED ROSALEE AC PIV. HELD PRESSURE THEN APPLIED PRESSURE BANDAGE
--- NOTE | 2019-05-24 19:52 | Discharge Summary ---
ADMISSION DIAGNOSES: 1. AMS, chemically induced. 2. Rhabdomyolysis. 3. Chronic pain. 4. History of drug use. 5. Opioid withdrawal. DISCHARGE DIAGNOSES: 1. AMS, chemically induced. 2. Rhabdomyolysis. 3. Chronic pain. 4. History of drug use. 5. Opioid withdrawal. 6. Rule out cerebrovascular accident. 7. Rule out transient ischemic attack. HISTORY: ADHD, chronic pain. SURGICAL HISTORY: Bilateral total knee replacement. FAMILY HISTORY: The patient's grandfather had cancer and diabetes. SOCIAL HISTORY: Occasional alcohol use, one pack cigarettes a day. HOSPITAL COURSE: A 33-year-old male, brought to the ER by his due to cold sweats, twitching, restless, and acting weird. He was tachypneic at 30 in the ER, but his SpO2 was 99% or more. ER MD and assumed he was withdrawing from morphine. Urine drug screen was positive for amphetamines, methamphetamines, and benzos. The patient is known to be taking morphine and Percocet, but it is not on the urine drug screen suggesting opioid withdrawal. Chest x-ray was negative. CT of the brain was negative. Ultrasound of the abdomen showed mild slim splenomegaly. LFTs were elevated, but not concerning. The patient will be discharged home and follow up with primary care in 1 to 2 weeks and Pain Management today. The patient and understand discharge instructions and agrees to plan. Vital signs stable and the patient is afebrile. Dictated by Beth Farrar NP Sachin Conklin MD CHULA/MODL /[id number]
== END 2019-05-24 14:25 | disposition home or self-care (01) | DRG 897 ==
LOC: ER 05:09 → ERHOLD 08:04 → ICU 08:38
PROVIDERS: ADMIT Internal Medicine Critical Care Medicine; ATTEND Internal Medicine Critical Care Medicine
DX: F11.23 Opioid dependence with withdrawal (principal); M62.82 Rhabdomyolysis; G45.9 Transient cerebral ischemic attack, unspecified; G89.29 Other chronic pain; Z96.653 Presence of artificial knee joint, bilateral; R16.1 Splenomegaly, not elsewhere classified; F90.9 Attention-deficit hyperactivity disorder, unspecified type; F15.10 Other stimulant abuse, uncomplicated
CPT/HCPCS: 31500; 36415; 36600; 70450; 71045; 76700; 80053; 80076; 80307; 81001; 82550; 82553; 82805; 83605; 83735; 84484; 85025; 86803; 87340; 93005; 94002; 99285; J0330; J1200; J2060; J2250; J2405; J3411; J3486; J7030; J7050